=== PATIENT | female | born 1980 | race Hispanic/Latino ===

== ENCOUNTER 2017-05-25 13:06 | Outpatient (CLI) | payer OTHER ==
--- NOTE | 2017-05-25 15:41 | ULT ---
DIAGNOSTIC RIGHT BREAST ULTRASOUND: Date: 05/25/17 CLINICAL HISTORY: Palpable mass right breast. Exam performed in conjunction with diagnostic mammography. FINDINGS: Real-time sonography performed of the upper outer quadrant of the right breast at the site of palpab le concern. There is a relatively hypogenous, hyperechoic mass, well circumscribed and oval in shape , measuring approximately 5.0 cm sonographically. This accounts for the area of palpable concern and correlates to the mammographic mass. IMPRESSION: BIRADS 4: Suspicious Abnormality - Biopsy Should Be Considered Further evaluation with ultrasound guided biopsy is recommended to further evaluate. These findings and recommendations were discussed with the patient at the time of the exam. A phone call was also placed by the mammography navigator, Penny Waldron, to patient's care provided wit rosario the institution which she currently resides for arrangements for the patient's biopsy. POS: NOAM
--- NOTE | 2017-05-25 15:44 | MMO ---
BILATERAL DIAGNOSTIC MAMMOGRAM: Date: 05/25/17 CLINICAL HISTORY: Palpable mass of the upper outer aspect of right breast at the axillary region. No prior exams. Interpreted as baseline exam. This patient's mammogram was interpreted with the assistance of computer-aided detection. FINDINGS: There are scattered fibroglandular elements bilaterally. There is a large, oval, circumscribed, rela tively hyperdense mass centered at the level of palpable concern within the right axillary tail mitchell uring 5.2 cm mammographically. This finding is correlated with ultrasound revealing a solid mass. IMPRESSION: BIRADS 4: Suspicious Abnormality - Biopsy Should Be Considered Further evaluation with ultrasound guided biopsy is recommended. Findings and recommendations were discussed with the patient in person at the time of diagnostic exa m. The patient's healthcare provider at the institution at which she resides was notified by mammogr aphy navigator via telephone. POS: NOAM
== END 2017-05-25 13:07 | disposition home or self-care (01) ==
LOC: MAMMO 13:06
PROVIDERS: ATTEND Family Medicine
DX: N63.11 Unspecified lump in the right breast, upper outer quadrant (principal)
CPT/HCPCS: 77066; G0204

== ENCOUNTER → 2017-06-22 | Day surgery (SDC) | payer OTHER ==
[~2017-06-22] MED LIST: Bacitracin Zinc 1 Packet ONE
--- NOTE | 2017-06-22 16:05 | ULT ---
SONOGRAPHIC GUIDED RIGHT BREAST MASS BIOPSY AND CLIP PLACEMENT: 06/22/17 HISTORY: Newly palpable right breast mass. FINDINGS: After explaining the procedure and answering all questions, the right breast was prepped and draped in the usual sterile fashion. Sterile technique, buffered local anesthesia, fluoroscopic guidance, a nd a lateral approach were used to carefully advanced the tip of a 14 gauge biopsy needle into the s oft mass. Two specimens were obtained, yielding crumbly sebaceous material. It was submitted to path ology for evaluation. Additional sebaceous material, approximately 5 mL was expressed from the lesion and discarded. Local ization clip was placed in the biopsy bed. Patient tolerated the procedure well and was dismissed in good condition. IMPRESSION: Technically successful ultrasound guided right breast mass biopsy and partial evacuation of the larg e sebaceous cyst. Pathology is pending. The imaging characteristics are most suggestive of a sebaceous cyst. If clinically indicated, surgic al evaluation for excision should be considered. POS: NOAM
== END ==
LOC: ULT 12:30
PROVIDERS: ATTEND Family Medicine
PROC: 0HBT3ZX Excision of Right Breast, Percutaneous Approach, Diagnostic (ICD-10-PCS; principal; 2017-06-22)
DX: N63.11 Unspecified lump in the right breast, upper outer quadrant (principal)
CPT/HCPCS: 19083; 88304